=== PATIENT | male | born 1980 | race African-American/Black ===

== ENCOUNTER 2019-05-20 22:21 | Emergency (ER) | payer OTHER ==
[~2019-05-20] VITALS: Ht 182.9 cm; Wt 109.3 kg
[2019-05-20] MEDS ORDERED: PREDNISONE50 MG PO (23:55)
[2019-05-20] MEDS ORDERED: PROAIR HFA8.5 GM INH (23:56)
[2019-05-21 00:15] VITALS: BP 119/89
== END 2019-05-21 00:16 | disposition home or self-care (01) ==
LOC: M.ERS 22:21
DX: J45.909 Unspecified asthma, uncomplicated (principal)